=== PATIENT | female | born 1945 | race Caucasian/White ===

== ENCOUNTER → 2017-03-11 | Outpatient (CLI) | payer MEDICARE, BC ==
[~2017-03-11] MED LIST: CELE200C PO; CRES10 PO; LEVO112T2 PO; VALS40TA2 PO
--- NOTE | 2017-03-11 14:30 | RADRPT ---
PROCEDURE: XR LEFT KNEE. CLINICAL INDICATION: Left knee pain. TECHNIQUE: Four views of the left knee are available for review including AP weight bearing, later al, PA 45 Chris weight bearing and merchant views. 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 Moderate degenerative change of the medial compartment consisting of osteo phytes primarily has not changed. 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 The bones are osteoporotic. No erosive changes are seen. IMPRESSION: 1. Progression of patellofemoral arthrosis, now advanced. 2. No change in moderate medial lateral compartment arthrosis. 3. Osteopenia. No evidence for fracture. RPTAT: XX .Leonard Arora MD, Date Time Electronically viewed and signed by .Leonard Arora MD, on 03/11/2017 14:29 .T/
== END | disposition home or self-care (01) ==
LOC: HKI 08:25
PROVIDERS: ATTEND Orthopaedic Surgery
DX: M25.562 Pain in left knee (principal); M25.462 Effusion, left knee; Z96.651 Presence of right artificial knee joint
CPT/HCPCS: 73564; G0463

== ENCOUNTER → 2017-03-29 | Outpatient (CLI) | payer MEDICARE, BC | END | disposition home or self-care (01) | LOC: HKI 10:09 | PROVIDERS: ATTEND Orthopaedic Surgery | DX: M17.12 Unilateral primary osteoarthritis, left knee (principal); M06.9 Rheumatoid arthritis, unspecified; Z96.651 Presence of right artificial knee joint | CPT/HCPCS: 20610; G0463; J1030 ==